=== PATIENT | female | born 1960 | race Caucasian/White ===

== ENCOUNTER 2025-03-04 08:34 | Outpatient (CLI) | payer BC | END 2025-03-04 08:35 | disposition home or self-care (01) | LOC: CSHMAMMO 08:34 | PROVIDERS: ATTEND Nurse Practitioner Family | DX: Z12.31 Encounter for screening mammogram for malignant neoplasm of breast (principal); Z98.82 Breast implant status | CPT/HCPCS: 77063; 77067 ==